=== PATIENT | female | born 1965 | race Caucasian/White ===

== ENCOUNTER 2016-12-18 07:15 | Day surgery (SDC) | payer OTHER ==
[2016-12-16 12:19] VITALS: BMI 24.0
[~2016-12-18 07:15] MED LIST: DEXAMETHASONE SOD PHOSPHATE 10 MG/ML 1 ML VIAL IV ONE; HEPARIN SODIUM,PORCINE 5,000 UNIT/ML 1 ML VIAL SQ ONE; HYDROmorphone 1 MG/ML 1 ML SYRINGE IVP PRN; LACTATED RINGERS 1,000 ML IV SCH; LIDOCAINE 1% 20 ML VIAL (10MG/ML) FOR IV START INTRADERMA PRN; MIDAZOLAM 2 MG/2 ML VIAL IV PRN; ONDANSETRON 4 MG/2 ML VIAL IVP ONE; Pre Op ABX Message 1 EACH MISC MISCELLANE ONE; SCOPOLAMINE 1.5MG/72HR PATCH TRANSDERM ONE
[2016-12-18 07:39] VITALS: RESP 16; TEMP 97.3
--- NOTE | 2016-12-18 07:44 | P.GSHP ---
History of Present Illness H&P Date: 12/18/16 Chief Complaint: External hemorrhoids This a 51-year-old female who has had complaints with burning and itching in her anus. She is seen in the office found have a large external hemorrhoid. Patient presents today for hemorrhoidectomy. - Constitutional Constitutional: Reports as per HPI Past Medical History Past Medical History: Liver Disease, Pneumonia Additional Past Medical History / Comment(s): Hx pneumonia 1 month ago. Chronic Hepatitis B and C. Recent hx shortness of breath, was given inhaler for PRN use but does not know name of it, instructed to bring with her on 12/18/16. History of Any Multi-Drug Resistant Organisms: None Reported Past Surgical History: Section Past Anesthesia/Blood Transfusion Reactions: No Reported Reaction Past Psychological History: No Psychological Hx Reported Smoking Status: Current every day smoker Past Alcohol Use History: None Reported Additional Past Alcohol Use History / Comment(s): Has smoked <1/2 PPD for 40 yrs. Past Drug Use History: None Reported Additional Drug Use History / Comment(s): States recovering drug addict. Currently living at [place]. - Past Family History Sister(s) Family Medical History: Cancer Medications and Allergies Home Medications Medication Instructions Recorded Confirmed Type Inhaler(Unknown Name/Dose) PRN 12/16/16 History Allergies Allergy/AdvReac Type Severity Reaction Status Date / Time No Known Allergies Allergy Verified 12/16/16 12:10 Surgical - Exam Vital Signs Temp Pulse Resp BP Pulse Ox 97.3 F L 78 16 84/64 96 12/18/16 07:36 12/18/16 07:36 12/18/16 07:36 12/18/16 07:36 12/18/16 07:36 - General well developed, no distress - Eyes PERRL - ENT normal pinna - Neck no masses - Respiratory normal expansion - Cardiovascular Rhythm: regular - Abdomen Abdomen: soft, non tender - Rectum Hemorrhoids: moderate Assessment and Plan Plan: External hemorrhoids. We'll perform hemorrhoidectomy.
[2016-12-18] MEDS ORDERED: NA PHOS,M-B/NA PHOS,DI-BA 133 ML ENEMA RECTAL ONE (07:45)
[2016-12-18] MEDS ORDERED: PROPOFOL 10 MG/ML 20 ML VIAL IV ONE (08:05)
[2016-12-18] MEDS ORDERED: MIDAZOLAM 2 MG/2 ML VIAL ONE (08:05)
[2016-12-18] MEDS ORDERED: LIDOCAINE 1% INJ 10MG/ML (20 ML MDV) ONE (08:05)
[2016-12-18] MEDS ORDERED: BUPIVACAIN-EPI 0.5%-1:200,000 30 ML VIAL SQ ONE (08:19)
--- NOTE | 2016-12-18 08:29 | P.OP ---
Date of Procedure: 12/18/16 Preoperative Diagnosis: Internal and external hemorrhoid Postoperative Diagnosis: Internal and external hemorrhoid Procedure(s) Performed: Excision of internal and external hemorrhoid Anesthesia: MAC Surgeon: Rubin Mesa Pathology: other (Internal/external hemorrhoid) Condition: stable Disposition: PACU Description of Procedure: The patient's placed in the operative table in the supine position. She received IV sedation. She was then placed in the prone jackknife position. Her perineum was prepped and draped usual sterile fashion. The patient had a large hemorrhoidal column located on her left lateral area. Using the anal retractor the hemorrhoidal columns exposed and then the hemorrhoidal column was grasped with a Allis clamp. Using the Harmonic scissors the hemorrhoidectomy was performed. There is no bleeding seen. The anus was then packed with Gelfoam patient was sent to recovery room stable condition.
[2016-12-18] MEDS ORDERED: GELATIN SPONGE,ABSORB (LARGE) 1 EACH SPONGE TOPICAL ONE (08:38)
[2016-12-18 09:12] VITALS: BP 90/56; PULSE 75
== END 2016-12-18 09:49 | disposition home or self-care (01) ==
LOC: OR 07:15
PROVIDERS: ATTEND Surgery
DX: K64.4 Residual hemorrhoidal skin tags (principal); K64.8 Other hemorrhoids; J45.909 Unspecified asthma, uncomplicated; F17.200 Nicotine dependence, unspecified, uncomplicated
CPT/HCPCS: 46255; J2250; J1644; J1100; J2405; J2001; J2704; 88304

== ENCOUNTER → 2017-01-14 | Day surgery (SDC) | payer OTHER ==
[2017-01-09 16:00] VITALS: BMI 24.9
[~2017-01-14] MED LIST changes: -DEXAMETHASONE SOD PHOSPHATE 10 MG/ML 1 ML VIAL IV ONE; -HEPARIN SODIUM,PORCINE 5,000 UNIT/ML 1 ML VIAL SQ ONE; -HYDROmorphone 1 MG/ML 1 ML SYRINGE IVP PRN; +LIDOCAINE 1% 20 ML VIAL (10MG/ML) FOR IV START INTRADERMA ONE; -LIDOCAINE 1% 20 ML VIAL (10MG/ML) FOR IV START INTRADERMA PRN; +LIDOCAINE 1% INJ 10MG/ML (20 ML MDV) ONE; -MIDAZOLAM 2 MG/2 ML VIAL IV PRN; -ONDANSETRON 4 MG/2 ML VIAL IVP ONE; +PROPOFOL 10 MG/ML 20 ML VIAL IV ONE; -Pre Op ABX Message 1 EACH MISC MISCELLANE ONE; -SCOPOLAMINE 1.5MG/72HR PATCH TRANSDERM ONE
[2017-01-14 08:28] VITALS: TEMP 97.8
--- NOTE | 2017-01-14 09:28 | P.GSHP ---
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 Patient had some rectal bleeding. She presents today for colonoscopy. - Constitutional Constitutional: Reports as per HPI Past Medical History Past Medical History: Liver Disease, Pneumonia Additional Past Medical History / Comment(s): CA Dx December 2016 unsure what type, Hx pneumonia 1 month ago. Chronic Hepatitis B and C. Recent hx shortness of breath, pm >1 yr History of Any Multi-Drug Resistant Organisms: None Reported Past Surgical History: Section Past Anesthesia/Blood Transfusion Reactions: No Reported Reaction Past Psychological History: No Psychological Hx Reported Smoking Status: Current every day smoker Past Alcohol Use History: None Reported Additional Past Alcohol Use History / Comment(s): Has smoked <1/2 PPD for 40 yrs. Past Drug Use History: None Reported Additional Drug Use History / Comment(s): States recovering drug addict. Currently living at [place]-requests no narcotics. - Past Family History Sister(s) Family Medical History: Cancer Medications and Allergies Home Medications Medication Instructions Recorded Confirmed Type Albuterol Sulfate [Proair Hfa] 1 - 2 puff INHALATION TID PRN 12/18/16 01/14/17 History Allergies Allergy/AdvReac Type Severity Reaction Status Date / Time narcotics AdvReac requests Uncoded 01/09/17 15:33 no narcotics. Surgical - Exam Vital Signs Temp Pulse Resp BP Pulse Ox 97.8 F 84 16 100/59 99 01/14/17 08:26 01/14/17 08:26 01/14/17 08:26 01/14/17 08:26 01/14/17 08:26 - General well developed, no distress - Eyes PERRL - ENT normal pinna - Neck no masses - Respiratory normal expansion - Cardiovascular Rhythm: regular - Abdomen Abdomen: soft, non tender Assessment and Plan Plan: GI bleed. History of squamous cell carcinoma of anus. We'll perform colonoscopy
--- NOTE | 2017-01-14 09:40 | P.OP ---
Date of Procedure: 01/14/17 Preoperative Diagnosis: GI bleed History of squamous cell carcinoma anus Postoperative Diagnosis: Diverticulosis Procedure(s) Performed: Colonoscopy Anesthesia: MAC Surgeon: Rubin Mesa Pathology: none sent Condition: stable Disposition: PACU Description of Procedure: The patient's placed on the endoscopy table in the lateral position. She received IV sedation. Digital rectal exam was performed which revealed no abnormalities. The patient had a previous biopsy site at her anus. The flexible colonoscope was then placed patient anus passed throughout the entire colon. The ileocecal valve was visualized. The cecum, ascending and transverse colon appeared normal. In the descending and sigmoid colon is mild diverticular changes. Scope was then brought back to the rectum and this appeared normal scope was withdrawn for patient.
[2017-01-14 09:48] VITALS: RESP 18
[2017-01-14 10:19] VITALS: BP 99/66; PULSE 75
== END | disposition home or self-care (01) ==
LOC: ORWHC2ENDO 08:10
PROVIDERS: ATTEND Surgery
DX: K57.30 Diverticulosis of large intestine without perforation or abscess without bleeding (principal); B18.2 Chronic viral hepatitis C; B18.1 Chronic viral hepatitis B without delta-agent; Z88.5 Allergy status to narcotic agent
CPT/HCPCS: 45378; J2001; J2704

== ENCOUNTER 2017-01-21 13:17 | Day surgery (SDC) | payer OTHER ==
[2017-01-19 10:58] VITALS: BMI 24.5
[~2017-01-21 13:17] MED LIST changes: +DEXAMETHASONE SOD PHOSPHATE 10 MG/ML 1 ML VIAL IV ONE; +HEPARIN SODIUM,PORCINE 5,000 UNIT/ML 1 ML VIAL SQ ONE; +HYDROmorphone 1 MG/ML 1 ML SYRINGE IVP PRN; -LIDOCAINE 1% 20 ML VIAL (10MG/ML) FOR IV START INTRADERMA ONE; +LIDOCAINE 1% 20 ML VIAL (10MG/ML) FOR IV START INTRADERMA PRN; -LIDOCAINE 1% INJ 10MG/ML (20 ML MDV) ONE; +MIDAZOLAM 2 MG/2 ML VIAL IV PRN; +ONDANSETRON 4 MG/2 ML VIAL IVP ONE; -PROPOFOL 10 MG/ML 20 ML VIAL IV ONE; +Pre Op ABX Message 1 EACH MISC MISCELLANE ONE; +SCOPOLAMINE 1.5MG/72HR PATCH TRANSDERM ONE
[2017-01-21 13:51] VITALS: TEMP 98.1
--- NOTE | 2017-01-21 14:13 | P.GSHP ---
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 The margin was positive. She presents today for reexcision. - Constitutional Constitutional: Reports as per HPI Past Medical History Past Medical History: Cancer, Liver Disease, Pneumonia Additional Past Medical History / Comment(s): anal cancer, Chronic Hepatitis B and C. History of Any Multi-Drug Resistant Organisms: None Reported Past Surgical History: Section Additional Past Surgical History / Comment(s): colonoscopy. lump removed from anal area Past Anesthesia/Blood Transfusion Reactions: No Reported Reaction Past Psychological History: No Psychological Hx Reported Smoking Status: Current every day smoker Past Alcohol Use History: None Reported Additional Past Alcohol Use History / Comment(s): Has smoked <1/2 PPD for 40 yrs. Past Drug Use History: None Reported Additional Drug Use History / Comment(s): States recovering drug addict. Currently living at [place]-requests no narcotics. - Past Family History Sister(s) Family Medical History: Cancer Mother Family Medical History: Cancer Medications and Allergies Home Medications Medication Instructions Recorded Confirmed Type Albuterol Sulfate [Proair Hfa] 1 - 2 puff INHALATION TID PRN 12/18/16 01/21/17 History Ibuprofen [Motrin] 200 - 400 mg PO DAILY 01/19/17 01/21/17 History Allergies Allergy/AdvReac Type Severity Reaction Status Date / Time narcotics AdvReac requests Uncoded 01/21/17 13:51 no narcotics. Surgical - Exam Vital Signs Temp Pulse Resp BP Pulse Ox 98.1 F 67 16 104/69 97 01/21/17 13:50 01/21/17 13:50 01/21/17 13:50 01/21/17 13:50 01/21/17 13:50 - General well developed, no distress - Eyes PERRL - ENT normal pinna - Neck no masses - Respiratory normal expansion - Cardiovascular Rhythm: regular - Abdomen Abdomen: soft, non tender - Rectum Healing anal incision Assessment and Plan Plan: Anal squamous cell carcinoma in situ. The margin was positive on her previous excision. Patient will undergo reexcision today.
[2017-01-21] MEDS ORDERED: NA PHOS,M-B/NA PHOS,DI-BA 133 ML ENEMA RECTAL ONE (14:15)
[2017-01-21] MEDS ORDERED: PROPOFOL 10 MG/ML 20 ML VIAL IV ONE (14:31)
[2017-01-21] MEDS ORDERED: MIDAZOLAM 2 MG/2 ML VIAL ONE (14:31)
[2017-01-21] MEDS ORDERED: BUPIVACAIN-EPI 0.5%-1:200,000 30 ML VIAL SQ ONE (14:48)
--- NOTE | 2017-01-21 15:10 | P.OP ---
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 She received IV sedation. Her anus was prepped and draped usual sterile fashion. And then using were sent Xylocaine with epinephrine the anus was anesthetized. The previous biopsy site was located at the 7 o'clock position of the anus. Using the anal retractor this was exposed and then using the Harmonic scissors a wide local excision of the previous biopsy was performed. The Bovie was used for hemostasis. The wound was packed with Gelfoam. Top she will was sent to recovery room stable condition.
[2017-01-21] MEDS ORDERED: ACETAMINOPHEN TAB 325 MG TAB PO STA (15:25)
[2017-01-21 16:17] VITALS: BP 107/74; PULSE 79; RESP 18
== END 2017-01-21 16:20 | disposition home or self-care (01) ==
LOC: OR 13:17
PROVIDERS: ATTEND Surgery
DX: D01.3 Carcinoma in situ of anus and anal canal (principal); J45.909 Unspecified asthma, uncomplicated; F17.200 Nicotine dependence, unspecified, uncomplicated; B19.20 Unspecified viral hepatitis C without hepatic coma; B19.10 Unspecified viral hepatitis B without hepatic coma; Z79.899 Other long term (current) drug therapy; Z79.1 Long term (current) use of non-steroidal anti-inflammatories (NSAID); Z88.5 Allergy status to narcotic agent
CPT/HCPCS: 46924; J2250; J1644; J1100; J2405; J2704; 88305; 88341; 88342

== ENCOUNTER → 2017-01-27 | Outpatient (CLI) | payer OTHER ==
[2017-01-27 11:40] LABS: Basophils % (A) 1 %; CH 30.4; CHCM 33.2; Eosinophils # (A) 0.2 k/uL (0-0.7); Eosinophils % (A) 2 %; HCT 40.4 % (34.0-46.0); HDW 2.56; HGB 13.4 gm/dL (11.4-16.0); Luc # (Auto) 0.17; Luc % (Auto) 2; Lymphocytes # (A) 2.6 k/uL (1.0-4.8); Lymphocytes % (A) 32 %; MCH 30.5 pg (25.0-35.0); MCHC 33.1 g/dL (31.0-37.0); MCV 92.1 fL (80.0-100.0); Mean Platelet Volume 6.6; Monocytes # (A) 0.4 k/uL (0-1.0); Monocytes % (A) 5 %; Neutrophils # (A) 4.6 k/uL (1.3-7.7); Neutrophils % (A) 58 %; RBC 4.38 m/uL (3.80-5.40); RDW 12.9 % (11.5-15.5); WBC (Perox) 8.18
[2017-01-27 12:48] LABS: ALT 74 U/L (9-52); AST 31 U/L (14-36); Alkaline Phosphatase 81 U/L (38-126); Anion Gap 10 mmol/L; Blood Urea Nitrogen 17 mg/dL (7-17); Calcium 9.4 mg/dL (8.4-10.2); Carbon Dioxide 26 mmol/L (22-30); Chloride 107 mmol/L (98-107); Glucose 103 mg/dL (74-99); Non-African American GFR(MDRD) >60 (>60 ml/min/1.73 sqM); Potassium 4.6 mmol/L (3.5-5.1); Sodium 143 mmol/L (137-145); Total Bilirubin 0.6 mg/dL (0.2-1.3); Total Protein 7.4 g/dL (6.3-8.2)
[2017-01-28 07:32] LABS: HIV-1/HIV-2 Ab Screen NONREAC (NON REAC)
== END | disposition home or self-care (01) ==
LOC: LABWHC1 11:05
PROVIDERS: ATTEND Radiology Radiation Oncology
DX: C21.0 Malignant neoplasm of anus, unspecified (principal)
CPT/HCPCS: 36415; 80053; 82378; 85025; 87389

== ENCOUNTER → 2017-01-31 | Outpatient (CLI) | payer OTHER ==
--- NOTE | 2017-02-01 12:31 | PE ---
EXAMINATION TYPE: PET CT fusion skull to thigh DATE OF EXAM: 01/31/2017 1:53 PM COMPARISON: No comparison images at this location. Prior PET/CT: None HISTORY: Anal cancer TECHNIQUE: Following the intravenous administration of 15.27 mCi of F-18 FDG, whole body images are performed from the skull base to the midthigh. Images are reviewed on the computer in the coronal, a xial, and sagittal planes. Reconstructed rotating images are created on independent workstation and reviewed on the computer. A localization and attenuation correction CT is performed in conjunction with the PET scan. DLP: 312.63 mGycm SCAN: Initial Blood glucose: 1 L1 mg/dL Average Mediastinum SUV: 1.46 Average Liver SUV: 1.47 FINDINGS: NECK: No abnormal uptake THORAX: No abnormal uptake ABDOMEN: No abnormal uptake PELVIS: No abnormal uptake. No suspicious uptake in the perirectal region is evident. There is normal intense activity within urinary bladder. Intermediate signal 2.5 SUV value could be at the level of the anus. OSSEOUS STRUCTURES: No abnormal uptake LOCALIZATION CT: The ascending thoracic aorta at the level of main pulmonary artery is 3.0 cm. The ma in pulmonary artery the bifurcation is 2.7 cm. Fecal debris is in the lower sigmoid colon. COMPARISON: No comparison IMPRESSION: 1. Suspicious focal uptake is not identified. Suspicious uptake at the level of the rectum is not ana maria dent. Some intermediate signal may be present in the distal rectum and anus.
== END | disposition home or self-care (01) ==
LOC: RADPETMAIN 07:35
PROVIDERS: ATTEND Radiology Radiation Oncology
DX: C21.0 Malignant neoplasm of anus, unspecified (principal)
CPT/HCPCS: 78815; A9552

== ENCOUNTER 2017-06-11 09:50 | Day surgery (SDC) | payer OTHER ==
[2017-06-04 11:31] VITALS: BMI 25.9
[2017-06-11 10:49] VITALS: RESP 16
--- NOTE | 2017-06-11 11:24 | P.GSHP ---
History of Present Illness H&P Date: 06/11/17 Chief Complaint: Anal polyp This is a 51-year-old female with history of the anus squamous cell dysplasia. Patient has developed a posterior midline anal polyp. She presents today for excision. Past Medical History Past Medical History: Cancer, Liver Disease, Pneumonia Additional Past Medical History / Comment(s): anal cancer, Chronic Hepatitis B and C. History of Any Multi-Drug Resistant Organisms: None Reported Past Surgical History: Section Additional Past Surgical History / Comment(s): colonoscopy. lump removed from anal area, RE EXCISION SQUAMOUS CELL CARCINOMA IN SITU OF ANUS Past Anesthesia/Blood Transfusion Reactions: No Reported Reaction Smoking Status: Current every day smoker - Past Family History Sister(s) Family Medical History: Cancer Mother Family Medical History: Cancer Medications and Allergies Home Medications Medication Instructions Recorded Confirmed Type No Known Home Medications [No 06/04/17 06/04/17 History Known Home Medications] Allergies Allergy/AdvReac Type Severity Reaction Status Date / Time narcotics AdvReac requests Uncoded 06/04/17 11:26 no narcotics. Surgical - Exam Vital Signs Temp Pulse Resp BP Pulse Ox 97.9 F 77 16 103/75 97 06/11/17 10:48 06/11/17 10:48 06/11/17 10:48 06/11/17 10:48 06/11/17 10:48 - General well developed, no distress - Eyes PERRL - ENT normal pinna - Neck no masses - Respiratory normal expansion - Cardiovascular Rhythm: regular - Abdomen Abdomen: soft, non tender - Rectum 5 mm anal polyp Assessment and Plan Plan: Anal polyp. We'll perform excision.
[2017-06-11] MEDS ORDERED: PROPOFOL 10 MG/ML 20 ML VIAL IV ONE (11:58)
[2017-06-11] MEDS ORDERED: LIDOCAINE 1% INJ 10MG/ML (20 ML MDV) ONE (11:58)
[2017-06-11] MEDS ORDERED: BUPIVACAINE-EPI 0.5%-1:200,000 10 ML VIAL SQ ONE (12:19)
--- NOTE | 2017-06-11 12:29 | P.OP ---
Date of Procedure: 06/11/17 Preoperative Diagnosis: Anal polyp Postoperative Diagnosis: Anal polyp Procedure(s) Performed: Excision of anal polyp Implants: Anesthesia: MAC Surgeon: Rubin Mesa Estimated Blood Loss (ml): 5 Pathology: other (Anal polyp) Condition: stable Disposition: PACU Indications for Procedure: Operative Findings: Description of Procedure: The patient's placed on the operative table in the prone jackknife position. She received IV sedation. The patient had a anal polyp the posterior area. The area was anesthetized 1% local Xylocaine. Using the a pair of pickups the polyp was grasped and then using a 11 blade the skin was incised. The Bovie hemostasis. Patient top procedure well and was sent to recovery in stable condition.
[2017-06-11 12:44] VITALS: TEMP 98.4
[2017-06-11 13:35] VITALS: BP 98/62; PULSE 72
== END 2017-06-11 13:42 | disposition home or self-care (01) ==
LOC: OR 09:50
PROVIDERS: ATTEND Surgery
DX: A63.0 Anogenital (venereal) warts (principal); Z85.048 Personal history of other malignant neoplasm of rectum, rectosigmoid junction, and anus; B18.1 Chronic viral hepatitis B without delta-agent; B18.2 Chronic viral hepatitis C; F17.200 Nicotine dependence, unspecified, uncomplicated; Z88.5 Allergy status to narcotic agent
CPT/HCPCS: 88305; 46922; J1644; J1100; J2405; J2001; J2704

== ENCOUNTER 2019-02-28 19:33 | Emergency (ER) | payer OTHER ==
[2019-02-28] MEDS ORDERED: SODIUM CHLORIDE 0.9% 1,000 ML IV STA (21:21)
--- NOTE | 2019-02-28 21:45 | ED ---
Nausea/Vomiting/Diarrhea HPI - General Chief complaint: Nausea/Vomiting/Diarrhea Stated complaint: Vomiting, Dehydrated Time Seen by Provider: 02/28/19 21:20 Source: patient Mode of arrival: ambulatory Limitations: no limitations - History of Present Illness Initial comments: Ludy is a 53-year-old female with a history of anal cancer as well as chron ic hep B and hep C who presents the emergency department today for evaluation of fatigue concern for dehydration and 2 weeks of nausea and 1 day of vomiting. Patient reports that for the past 2 weeks she's been feeling nauseated she's not been feeling very well she's had decreased by mouth intake and complete loss of appetite. She reports that today she tried eating but she had a couple episodes of nonbloody nonbilious emesis. Patient reports she's concerned that she may be getting dehydrated so she came to the ER for evaluation. Patient also notes that she is been unable to sleep well lately, she was staying with a friend yesterday who gave her a Seroquel this morning because she hadn't slept well throughout the night and she did sleep some this morning. Patient also notes that she has not seen a primary care or her surgeon in the past 6 months. She has missed her follow-up visits for reevaluation of her anal cancer. - Related Data Previous Rx's Medication Instructions Recorded Ondansetron [Zofran ODT] 4 mg PO Q8HR #12 tab 02/28/19 Allergies Allergy/AdvReac Type Severity Reaction Status Date / Time narcotics AdvReac requests Uncoded 02/28/19 20:00 no narcotics. Review of Systems ROS Statement: Those systems with pertinent positive or pertinent negative responses have been documented in the HPI. ROS Other: All systems not noted in ROS Statement are negative. Past Medical History Past Medical History: Cancer, Liver Disease, Pneumonia Additional Past Medical History / Comment(s): anal cancer, Chronic Hepatitis B and C. History of Any Multi-Drug Resistant Organisms: None Reported Past Surgical History: Section Additional Past Surgical History / Comment(s): colonoscopy. lump removed from anal area, RE EXCISION SQUAMOUS CELL CARCINOMA IN SITU OF ANUS Past Anesthesia/Blood Transfusion Reactions: No Reported Reaction Past Psychological History: No Psychological Hx Reported Smoking Status: Current every day smoker Past Alcohol Use History: None Reported Past Drug Use History: None Reported - Past Family History Sister(s) Family Medical History: Cancer Mother Family Medical History: Cancer General Exam - General Exam Comments Initial Comments: Physical Exam GENERAL: Chronically ill appearing female, appears older than stated age, underweight HENT: Normocephalic, Atraumatic. EYES: PERRL, EOMI PULMONARY: Unlabored respirations. No audible rales rhonchi or wheezing was noted. CARDIOVASCULAR: There is a regular rate and rhythm without any murmurs gallops or rubs. ABDOMEN: Soft and nontender with normal bowel sounds. SKIN: Skin is clear with no lesions or rashes and otherwise unremarkable. : Deferred NEUROLOGIC: Patient is alert and oriented x3. Moving all extremities spontaneously MUSCULOSKELETAL: Normal extremities with adequate strength and full range of motion. No lower extremity swelling or edema. No calf tenderness. PSYCHIATRIC: Normal psychiatric evaluation. Limitations: no limitations Course Vital Signs 02/28/19 19:40 Temperature 98.1 F Pulse Rate 84 Respiratory 18 Rate Blood Pressure 136/89 O2 Sat by Pulse 100 Oximetry Medical Decision Making - Medical Decision Making was seen and evaluated history is obtained from patient Labs were ordered Labs revealed no acute abnormalities, glucose is 100, AST is mildly elevated consistent with patient's history of hepatitis Patient was feeling better after IV fluid she was found to be trying to walk out of the emergency department fully clothed with her IV still in place. Patient was advised that she needed to wait IV removal and discharge. Patient discharged home in stable condition - Lab Data Result diagrams: 02/28/19 20:53 02/28/19 20:53 Lab Results 02/28/19 02/28/19 02/28/19 Range/Units 20:53 20:53 20:53 WBC 10.6 (3.8-10.6) k/uL RBC 5.69 H (3.80-5.40) m/uL Hgb 15.9 (11.4-16.0) gm/dL Hct 50.3 H (34.0-46.0) % MCV 88.5 (80.0-100.0) fL MCH 28.0 (25.0-35.0) pg MCHC 31.6 (31.0-37.0) g/dL RDW 14.7 (11.5-15.5) % Plt Count 397 (150-450) k/uL Neutrophils % 70 % Lymphocytes % 24 % Monocytes % 4 % Eosinophils % 1 % Basophils % 1 % Neutrophils # 7.5 (1.3-7.7) k/uL Lymphocytes # 2.5 (1.0-4.8) k/uL Monocytes # 0.4 (0-1.0) k/uL Eosinophils # 0.1 (0-0.7) k/uL Basophils # 0.1 (0-0.2) k/uL Sodium 138 (137-145) mmol/L Potassium 5.3 H (3.5-5.1) mmol/L Chloride 101 (98-107) mmol/L Carbon Dioxide 28 (22-30) mmol/L Anion Gap 9 mmol/L BUN 14 (7-17) mg/dL Creatinine 0.51 L (0.52-1.04) mg/dL Est GFR (CKD-EPI)AfAm >90 (>60 ml/min/1.73 sqM) Est GFR (CKD-EPI)NonAf >90 (>60 ml/min/1.73 sqM) Glucose 100 H (74-99) mg/dL Calcium 9.6 (8.4-10.2) mg/dL Total Bilirubin 0.8 (0.2-1.3) mg/dL AST 40 H (14-36) U/L ALT 50 (9-52) U/L Alkaline Phosphatase 91 (38-126) U/L Total Protein 8.1 (6.3-8.2) g/dL Albumin 4.4 (3.5-5.0) g/dL Amylase 104 (30-110) U/L Lipase 100 (23-300) U/L Urine Color Yellow Urine Appearance Cloudy H (Clear) Urine pH 6.5 (5.0-8.0) Ur Specific [place] 1.023 (1.001-1.035) Urine Protein Trace H (Negative) Urine Glucose (UA) Negative (Negative) Urine Ketones Negative (Negative) Urine Blood Negative (Negative) Urine Nitrite Negative (Negative) Urine Bilirubin Negative (Negative) Urine Urobilinogen <2.0 (<2.0) mg/dL Ur Leukocyte Esterase Small H (Negative) Urine WBC 2 (0-5) /hpf Ur Squamous Epith Cells 3 (0-4) /hpf Amorphous Sediment Few H (None) /hpf Granular Casts 3 (0) /lpf Urine Mucus Rare H (None) /hpf Disposition Clinical Impression: Nausea and vomiting Disposition: HOME SELF-CARE Condition: Stable Instructions (If sedation given, give patient instructions): Acute Nausea and Vomiting (ED) Additional Instructions: Patient is drinking plenty of fluids including water or a sugar and electrolyte solution such as Gatorade or Powerade or Pedialyte. Prescriptions: Ondansetron [Zofran ODT] 4 mg PO Q8HR #12 tab Is patient prescribed a controlled substance at d/c from ED?: No Referrals: None,Stated [Primary Care Provider] - 1-2 days
[2019-02-28 21:58] LABS: Basophils # (A) 0.1 k/uL (0-0.2); Basophils % (A) 1 %; Eosinophils # (A) 0.1 k/uL (0-0.7); Eosinophils % (A) 1 %; HCT 50.3 % (34.0-46.0); HGB 15.9 gm/dL (11.4-16.0); Lymphocytes # (A) 2.5 k/uL (1.0-4.8); Lymphocytes % (A) 24 %; MCHC 31.6 g/dL (31.0-37.0); MCV 88.5 fL (80.0-100.0); Mean Platelet Volume 6.8; Monocytes # (A) 0.4 k/uL (0-1.0); Monocytes % (A) 4 %; Neutrophils # (A) 7.5 k/uL (1.3-7.7); Neutrophils % (A) 70 %; Platelet Count 397 k/uL (150-450); RBC 5.69 m/uL (3.80-5.40); RDW 14.7 % (11.5-15.5); WBC 10.6 k/uL (3.8-10.6)
[2019-02-28 22:12] LABS: Amorphous Sediment,Urine Few /hpf; Appearance,Urine Cloudy (Clear); Bilirubin,Urine Negative (Negative); Blood,Urine Negative (Negative); Color,Urine Yellow; Glucose,Urine (UA) Negative (Negative); Granular Casts,Urine 3 /lpf (0); Ketones,Urine Negative (Negative); Leukocyte Esterase,Urine Small (Negative); Mucus,Urine Rare /hpf; Nitrite,Urine Negative (Negative); PH, Urine 6.5 (5.0-8.0); Protein,Urine Trace (Negative); Specific Gravity,Urine 1.023 (1.001-1.035); Squamous Epithelial Cell,Urine 3 /hpf (0-4); Urobilinogen,Urine <2.0 mg/dL (<2.0); WBC,Urine 2 /hpf (0-5)
[2019-02-28 22:21] LABS: ALT 50 U/L (9-52); AST 40 U/L (14-36); Albumin 4.4 g/dL (3.5-5.0); Alkaline Phosphatase 91 U/L (38-126); Amylase 104 U/L (30-110); Anion Gap 9 mmol/L; Blood Urea Nitrogen 14 mg/dL (7-17); Calcium 9.6 mg/dL (8.4-10.2); Carbon Dioxide 28 mmol/L (22-30); Chloride 101 mmol/L (98-107); Glucose 100 mg/dL (74-99); Lipase 100 U/L (23-300); Sodium 138 mmol/L (137-145); Total Bilirubin 0.8 mg/dL (0.2-1.3); Total Protein 8.1 g/dL (6.3-8.2)
[2019-02-28 22:27] LABS: Potassium 5.3 mmol/L (3.5-5.1)
[2019-02-28] MEDS ORDERED: ONDANSETRON 4 MG ODT STARTER PACK 2 TAB BTL PO STA (23:15)
[2019-02-28 23:36] VITALS: BP 107/71; PULSE 90; RESP 16; TEMP 98.2
== END 2019-02-28 23:36 | disposition home or self-care (01) ==
LOC: EC 19:33
DX: R11.2 Nausea with vomiting, unspecified (principal); R19.7 Diarrhea, unspecified; R63.0 Anorexia; R53.83 Other fatigue; R74.0 Nonspecific elevation of levels of transaminase and lactic acid dehydrogenase [LDH]; F17.200 Nicotine dependence, unspecified, uncomplicated; Z86.19 Personal history of other infectious and parasitic diseases; Z85.048 Personal history of other malignant neoplasm of rectum, rectosigmoid junction, and anus; Z88.5 Allergy status to narcotic agent
CPT/HCPCS: 36415; 80053; 82150; 83690; 85025; 81001; 99284; 96360; 96361; S0119